=== PATIENT | female | born 1990 | race Caucasian/White ===

== ENCOUNTER 2025-01-18 14:16 | Emergency (ER) | payer OTHER ==
[~2025-01-18] VITALS: Ht 175.3 cm; Wt 75.0 kg
[2025-01-18 14:29] VITALS: BP 139/89; PULSE 78; TEMP 97.8; O2SAT 99
--- NOTE | 2025-01-18 14:58 | RADIOLOGY REPORT ---
CLINICAL INDICATION: ANKLE PAIN TECHNIQUE: 3 radiographic views of the right ankle were obtained. Comparison: None FINDINGS/IMPRESSION: Possible fracture of the talus . Correlate with point tenderness.
--- NOTE | 2025-01-18 16:27 | Physician Documentation ---
History of Present Illness ~ Chief Complaint: Ankle pain Stated Complaint: R ANKLE PAIN Time Seen by MD: 16:17 HPI Patient is seen today with complaints of pain of her right ankle after she had an accident while water skiing in the leg just earlier today. Patient states he was water skiing and fell over but her foot got stuck in the binding and it tweaked her ankle real hard. She has no other concern or complaint at this time. She states he has been icing it for the last couple of hours. Medication Reconciliation Allergies: Coded Allergies: diphenhydramine (Verified Allergy, Severe, "STOP LIVING", 01/18/25) Penicillins (Verified Allergy, Intermediate, HIVES, 01/18/25) Review of Systems Constitutional: Denies: chills, fever, weakness Eyes: Denies: pain, blurred vision ENT: Denies: ear pain, nose pain, throat pain, mouth pain Respiratory: Denies: cough, shortness of breath Cardiovascular: Denies: chest pain, palpitations Gastrointestinal: Denies: abdominal pain, nausea, vomiting Genitourinary: Denies: burning, dysuria Female Genitalia: Denies: vaginal discharge, pelvic pain Neurological: Denies: headache, dizziness Musculoskeletal: Denies: pain, swelling Integumentary: Denies: rash, lesions Allergic/Immunologic: Denies: hives, itching Hematologic/Lymphatic: Denies: no symptoms reported Psychiatric: Denies: depression, anxiety Physical Exam Vital Signs: Temperature: 97.8, Source: Temporal, Heart Rate: 78, Respiratory Rate: 18, BP: 139/89, Pulse Oximetry: 99, Weight: 75.000 Oxygen Flow Rate: 0 Physical Exam General: Awake and Alert, no acute distress. HEENT: Conjunctiva pink, Sclera clear, Mucus Membranes moist. Neck: Supple without masses and tenderness. Resp: Unlabored. Lungs clear to auscultation bilaterally. Heart: Regular Rate and rhythm, normal S1 and S2 without murmur, rub or gallop. Musculoskeletal: Patient on exam does have significant swelling of the right a nkle with severe/significant tenderness to palpation of the lateral ankle just distal to the lateral malleoli. Patient is not able to bear weight without severe pain. Patient is neurovascularly intact distally. Motor function intact distally. Extremities: No cyanosis,clubbing or edema. Skin: Warm and Dry. Progress Results/Orders Results/Orders Orders - DAVINA CHONG PAC Ortho Orders (01/18/25 16:28) Vital Signs 01/18/25 14:29 Temp 97.8 Pulse 78 Resp 18 B/P (MAP) 139/89 Pulse Ox 99 O2 Flow Rate 0 EKG/XRAY/CT/US/VASC/MRI Bone/Soft Tissue X-Ray (Ext.) : Additional Comment X-ray of the right ankle interpreted by myself today shows possible fracture of the talus on the lateral aspects. Bones are otherwise in anatomic alignment. DIAGNOSTIC RADIOLOGY Patient: RYLEY HOOD Medical Record: [id number] : 1990, Age: 34 Sex: Female Location: ER Patient Status: [facility] ER Service Date/Time: 01/18/251449 Ordering Physician: ANTHONY BENITEZ MD Exam: ANKLE, COMPLETE(3VW MIN) CLINICAL INDICATION: ANKLE PAIN TECHNIQUE: 3 radiographic views of the right ankle were obtained. Comparison: None FINDINGS/IMPRESSION: Possible fracture of the talus . Correlate with point tenderness. Electronically Signed by:HARSHA OLGUIN MD Date & Time: 01/18/251455 Dictated by: HARSHA OLGUIN MD Dictation date and time: 01/18/251455 Primary Care Provider: NO PRIMARY CARE PROVIDER cc: ANTHONY BENITEZ MD ~ Medical Decision Making Findings Patient is seen today with complaints of pain of her right ankle after she had an accident while water skiing in the leg just earlier today. Patient states he was water skiing and fell over but her foot got stuck in the binding and it tweaked her ankle real hard. She has no other concern or complaint at this time. She states he has been icing it for the last couple of hours. Patient declined strongly a plaster splint stating she is at the [place]. Patient was given very specific indirect instructions to be nonweightbearing and was given pair of crutches and walking boot with ins truction to not ambulate on the right lower extremity. Patient will follow up with primary care and get referral to network specialist for further eval and treatment. X-ray of right ankle did show possible fracture of the talus. Return to ED with any worsening, concerning or changing symptoms. Continue Tylenol as needed for symptomatic pain relief. Continue ice and rest and elevate 20 minutes on 20 minutes off for the next 2-3 days. Departure Disposition: HOME / SELF CARE / HOMELESS Impression: Primary Impression: Talus fracture Qualified Codes: S92.101A - Unspecified fracture of right talus, initial encounter for closed fracture Condition: Stable Discharge Instructions: Ankle Pain, Ankle Fracture Additional Instructions: Patient declined strongly a plaster splint stating she is at the [place] on vacation. Patient was given very specific indirect instructions to be nonweightbearing and was given pair of crutches and walking boot with instruction to not ambulate on the right lower extremity. Patient will follow up with primary care and get referral to network specialist for further eval and treatment. X-ray of right ankle did show possible fracture of the talus. Return to ED with any worsening, concerning or changing symptoms. Continue Tylenol as needed for symptomatic pain relief. Continue ice and rest and elevate 20 minutes on 20 minutes off for the next 2-3 days. Referrals: NO PRIMARY CARE PROVIDER (PCP) Signature Scribe Signature: No scribe Attestation: No scribe DAVINA CHONG PAC Jan 18, 2025 16:27
[2025-01-18 16:57] VITALS: RESP 16
== END 2025-01-18 17:02 | disposition home or self-care (01) ==
LOC: ER 14:17
DX: S92.141A Displaced dome fracture of right talus, initial encounter for closed fracture (principal); Z88.0 Allergy status to penicillin; Z88.8 Allergy status to other drugs, medicaments and biological substances; V00.321A Fall from snow-skis, initial encounter; Y93.17 Activity, water skiing and wake boarding; Y92.89 Other specified places as the place of occurrence of the external cause; Y99.8 Other external cause status
CPT/HCPCS: 73610; 99284; L4360; A6449